=== PATIENT | female | born 1950 | race Hispanic/Latino ===

== ENCOUNTER → 2020-02-12 | Day surgery (SDC) | payer OTHER ==
[2020-02-07 09:09] LABS: BASOPHILS # (AUTO) 0.1 (0.0-0.1); BASOPHILS % 0.6 % (0.0-1.0); EOSINOPHILS # (AUTO) 0.1 (0.0-0.4); HEMATOCRIT 42.3 % (34.2-44.1); HEMOGLOBIN 13.3 g/dL (12.0-16.0); LYMPHOCYTES # (AUTO) 3.1 (1.0-3.2); LYMPHOCYTES % 39.7 % (18.0-39.1); MEAN CORPUSCULAR HEMOGLOBIN 28.2 pg (28-32); MEAN CORPUSCULAR HGB CONC 31.4 g/dL (31-35); MEAN CORPUSCULAR VOLUME 89.8 fL (81-99); MONOCYTES # (AUTO) 0.7 (0.2-0.8); MONOCYTES % 8.7 % (4.4-11.3); NEUTROPHILS # (AUTO) 3.8 (2.1-6.9); NEUTROPHILS % 49.4 % (38.7-80.0); PLATELET COUNT 236 x10e3/uL (140-360); RED BLOOD COUNT 4.71 x10e6/uL (3.6-5.1); RED CELL DISTRIBUTION WIDTH 14.2 % (11.7-14.4)
--- NOTE | 2020-02-07 09:52 | Diagnostic Imaging Report ---
EXAMINATION: CHEST 2 VIEWS INDICATION: Pre-operative COMPARISON: None FINDINGS: LINES/TUBES:None LUNGS:The lungs are well-inflated. No focal consolidation or pulmonary edema. PLEURA:No pleural effusion or pneumothorax. MEDIASTINUM:The cardiomediastinal silhouette appears normal in size and shape. BONES/SOFT TISSUES:No acute osseous injury. ABDOMEN:No free air under the diaphragm. IMPRESSION: No focal pneumonia or pulmonary edema. Signed by: Gianfranco Sellers MD on 02/07/2020 9:48 AM
[~2020-02-12] VITALS: Ht 167.6 cm; Wt 53.5 kg
[~2020-02-12] MED LIST: BUPIVACAINE HCL 0.5% INJ 30 ML VIAL INJ ONE; CEFAZOLIN SOD 1 GM/NS 50ML 50 ML IV ONE; DEXAMETHASONE SOD PHOS INJ 4 MG/ML VIAL ONE; FENTANYL CITRATE/PF 100MCG/2 ML INJ ONE; GABAPENTIN100 MG PO; IBUPROFEN400 MG PO; LIDOCAINE HCL 2% LOCAL INJ 5 ML SDV VIAL INJ ONE; LISINOPRIL10 MG PO; MIDAZOLAM HCL 2 MG/2 ML VIAL ONE; MIRTAZAPINE15 MG PO; ONDANSETRON HCL INJ 2MG/ML 2ML 2 MG/ML VIAL ONE; PRAVACHOL40 MG PO; PREDNISONE5 MG PO; PROPOFOL IV EMULSION 10 MG/ML 20 ML VIAL ONE; SEVOFLURANE INHAL SOLN 250 ML PEN BTL ONE
--- NOTE | 2020-02-12 08:47 | Operative Report ---
DATE OF PROCEDURE: 02/12/2020 SURGEON: Loco Carreno DPM PREOPERATIVE DIAGNOSIS: Left foot soft tissue mass. POSTOPERATIVE DIAGNOSIS: Left foot soft tissue mass. PLANNED PROCEDURE: Left foot excision of soft tissue mass. ANESTHESIA: General with a postoperative block consisting of 15 mL 0.5% Marcaine plain mixed with 1 mL dexamethasone phosphate. HEMOSTASIS: Pneumatic ankle tourniquet set at 250 mmHg for a total time approximately 25 minutes. MATERIALS: 3-0 nylon. ESTIMATED BLOOD LOSS: Less than 10 mL. PATHOLOGY: Soft tissue mass and soft tissue fluid sent for pathology. PROCEDURE NOTE: The patient was seen in the preoperative waiting room. The correct procedure and site were identified. The patient was brought to the operating room and placed on the operating table in supine position. General anesthesia was initiated. At this time, a well-padded pneumatic tourniquet was placed about the patient's left ankle. The left foot, ankle, and leg were scrubbed, prepped, and draped in the usual aseptic manner. The left foot, ankle, and leg were exsanguinated with an Esmarch bandage and a pneumatic ankle tourniquet inflated to 250 mmHg for a total time of approximately 25 minutes. Attention was directed to the plantar aspect of the patient's left 1st MPJ where a large mass was noted approximately golf ball size. Utilizing #15 blade, a 4 cm linear incision was made directly over the plantar aspect of the 1st metatarsophalangeal joint. It should be noted that upon incision, a white milky creamy consistent and was exuded from the wound site and kept in a specimen cup to send for pathology. As the wound was explored, a hard fibrous mass was noted to the plantar aspect of the 1st metatarsophalangeal joint, which appeared to be well encapsulated and did not appear to be entangled with the flexor hallucis longus tendon. Utilizing blunt dissection, the soft tissue mass was dissected free of all attachments proximally, distally, medially, and laterally, it should be noted along the medial aspect of the soft tissue mass. It appeared to be well adhered with skin, so a second incision was made along the medial aspect of the 1st metatarsophalangeal joint to allow for full excision of the soft tissue mass. The soft tissue mass was noted to be very superficial, which left a thin skin during the incision site, so there is concern for postoperative wound healing. The incision site was reapproximated utilizing a 3-0 nylon. Prior to wound closure, the wound was copiously irrigated with sterile saline. The incision site was then dressed with Adaptic, 4x4s, Kerlix, Victor Hugo wrap, and a postop shoe. The patient tolerated the procedure and anesthesia well. The patient was transferred to the postoperative recovery room with vital signs stable and vascular status intact. The patient was monitored there for a short period of time before being sent home with the following written and oral instructions. 1. Keep the dressing clean, dry, and intact. 2. The patient is to remain nonweightbearing to the left lower extremity to avoid any ambulation until being seen in the office. 3. The patient was given the office number and instructed to contact us if any problems arise. BRODERICK Tomlinson/ELLEN /[id number]
[2020-02-12 08:55] VITALS: BP 179/87
== END | disposition home or self-care (01) ==
LOC: OR 05:28
PROVIDERS: ATTEND Podiatrist Foot & Ankle Surgery
DX: L72.0 Epidermal cyst (principal); I10 Essential (primary) hypertension; R73.03 Prediabetes; F32.9 Major depressive disorder, single episode, unspecified; Z88.1 Allergy status to other antibiotic agents; Z01.810 Encounter for preprocedural cardiovascular examination; Z01.812 Encounter for preprocedural laboratory examination; Z01.818 Encounter for other preprocedural examination; Z11.59 Encounter for screening for other viral diseases; Z86.73 Personal history of transient ischemic attack (TIA), and cerebral infarction without residual deficits; Z86.11 Personal history of tuberculosis
CPT/HCPCS: 28039; 36415; 71046; 85025; 88304; 93005; J0690; J2001; J2250; J2405; J2704; J3010; U0002; J1100